=== PATIENT | female | born 1990 | race Two or more races ===

== ENCOUNTER → 2017-08-06 | Outpatient (REF) | payer OTHER | LOC: M SFHCLERA 13:15 | DX: R68.89 Other general symptoms and signs (principal); J35.1 Hypertrophy of tonsils ==

== ENCOUNTER → 2017-09-17 | Outpatient (REF) | payer OTHER ==
[2017-09-17 20:56] LABS: CHLAMYDIA DNA AMPLIFICATION NEGATIVE (NEGATIVE); GC DNA AMPLIFICATION NEGATIVE (NEGATIVE)
== END ==
LOC: M SFHCLERA 14:16
DX: R30.0 Dysuria (principal)

== ENCOUNTER → 2018-01-14 | Outpatient (REF) | payer OTHER | LOC: M SFHCLERA 17:42 | DX: J02.9 Acute pharyngitis, unspecified (principal) ==

== ENCOUNTER → 2018-01-28 | Outpatient (REF) | payer OTHER | LOC: M SFHCLERA 11:37 | DX: J02.9 Acute pharyngitis, unspecified (principal) ==

== ENCOUNTER → 2018-02-09 | Outpatient (REF) | payer OTHER | LOC: M SFHCADAM 19:19 | DX: J03.90 Acute tonsillitis, unspecified (principal); J02.9 Acute pharyngitis, unspecified | CPT/HCPCS: 87110 ==

== ENCOUNTER → 2018-04-03 | Outpatient (REF) | payer OTHER | LOC: M SFHCLERA 16:55 | DX: F43.22 Adjustment disorder with anxiety (principal) ==

== ENCOUNTER → 2018-06-20 | Outpatient (REF) | payer OTHER ==
[2018-06-20 20:34] LABS: APPEARANCE, URINE CLEAR (CLEAR); BACTERIA, URINE AUTO NEGATIVE (NEGATIVE); BILIRUBIN, URINE AUTO NEGATIVE (NEGATIVE); BLOOD, URINE BLOOD 2+ (NEGATIVE); COLOR, URINE STRAW (YELLOW); GLUCOSE, URINE (UA) AUTO NEGATIVE (NEGATIVE); KETONE, URINE AUTO NEGATIVE (NEGATIVE); LEUKOCYTE ESTERASE, URINE AUTO NEGATIVE (NEGATIVE); MUCUS, URINE SMALL (NEGATIVE); NITRITE, URINE AUTO NEGATIVE (NEGATIVE); PROTEIN, URINE AUTO NEGATIVE (NEGATIVE); RBC, URINE AUTO 0 /HPF (0-3); SPECIFIC GRAVITY URINE AUTO 1.005 (1.002-1.035); SQUAMOUS EPITHELIAL CELL UR AU 1 /HPF (0-6); UROBILINOGEN, URINE AUTO 0.2 mg/dL (0.0-2.0); WBC, URINE AUTO 1 /HPF (0-3)
== END ==
LOC: M SFHCLERA 15:34
PROVIDERS: ATTEND Family Medicine
DX: N20.1 Calculus of ureter (principal)
CPT/HCPCS: 81001; 87086; G0463

== ENCOUNTER → 2018-07-04 | Outpatient (CLI) | payer OTHER ==
--- NOTE | 2018-07-05 03:10 | REP ---
Clinical: Right foot pain with recent trauma/injury . Technique: AP, lateral, bilateral oblique views of the right foot. Findings: Post traumatic arthritic degenerative changes are appreciated primarily involving the first toe and associated tarsometatarsal joint with orthopedic hardware in satisfactory position. Degenerative changes at the first metatarsophalangeal joint includes chronic moderate medial subluxation, subchondral sclerosis, marginal spurring and joint space narrowing. The second through fifth toes appear essentially intact and relatively normal for age. No acute fracture or dislocation identified. No subcutaneous emphysema or radiodense foreign body. 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 No acute fracture or dislocation identified. Electronically Signed by Neil Vale MD 07/05/2018 03:02 A
== END ==
LOC: M LRY 14:16
PROVIDERS: ATTEND Family Medicine
DX: M19.171 Post-traumatic osteoarthritis, right ankle and foot (principal); Z96.60 Presence of unspecified orthopedic joint implant
CPT/HCPCS: 73630; G0463

== ENCOUNTER → 2018-07-05 | Outpatient (REF) | payer OTHER ==
[2018-07-05 14:35] LABS: APPEARANCE, URINE CLEAR (CLEAR); BACTERIA, URINE AUTO NEGATIVE (NEGATIVE); BILIRUBIN, URINE AUTO NEGATIVE (NEGATIVE); BLOOD, URINE BLOOD NEGATIVE (NEGATIVE); COLOR, URINE YELLOW (YELLOW); GLUCOSE, URINE (UA) AUTO NEGATIVE (NEGATIVE); KETONE, URINE AUTO NEGATIVE (NEGATIVE); LEUKOCYTE ESTERASE, URINE AUTO NEGATIVE (NEGATIVE); MUCUS, URINE SMALL (NEGATIVE); NITRITE, URINE AUTO NEGATIVE (NEGATIVE); PROTEIN, URINE AUTO NEGATIVE (NEGATIVE); RBC, URINE AUTO 0 /HPF (0-3); SQUAMOUS EPITHELIAL CELL UR AU 0 /HPF (0-6); UROBILINOGEN, URINE AUTO 0.2 mg/dL (0.0-2.0); WBC, URINE AUTO 1 /HPF (0-3)
== END ==
LOC: M SMT 13:36
PROVIDERS: ATTEND Nurse Practitioner Family
DX: N20.0 Calculus of kidney (principal)

== ENCOUNTER → 2018-07-12 | Outpatient (CLI) | payer OTHER ==
[~2018-07-12] MED LIST: ISOVUE-370 76% 125ML VIAL (Q9967 PER ML) As Ordered ONE
--- NOTE | 2018-07-13 16:21 | REP ---
Clinical: Ureteral calculus. Technique: Axial precontrast, contrast enhanced, and delayed images of the abdomen and pelvis using 100 ml Isovue 370 intravenous contrast material with coronal and sagittal re-formations. Comparison: None. Findings: Precontrast images demonstrate a 5 mm calculus in the left jacky pelvis which based on contrast enhanced and delayed images is suspected to be within the distal left ureter approaching the ureterovesical junction. However, there is no significant hydroureteronephrosis and correlation with physical examination and urinalysis is recommended. Two 1-2 mm nonobstructing right intrarenal calculi are also identified. The bilateral kidneys, ureters, and bladder otherwise appear normal. Liver, spleen, pancreas, gallbladder, and bilateral adrenal glands are normal. The enteric system is without obstruction or acute inflammatory process. Scattered colonic diverticula noted without acute diverticulitis. Normal terminal ileum and appendix are identified in the right lower quadrant. There appears to be a cone shaped foreign body within the uterus which should be correlated clinically. No pelvic fluid or ascites. No free air. No adenopathy. Abdominal aorta and vasculature without aneurysm or dissection. Musculoskeletal structures are intact. Impression: 1. Suspected 5 mm of the distal left ureteral calculus should be correlated clinically. 1-2 mm nonobstructing right intrarenal calculi. 2. Further findings as described above. Electronically Signed by Neil Vale MD 07/13/2018 04:13 P
== END ==
LOC: M RAD 08:30
PROVIDERS: ATTEND Nurse Practitioner Family
DX: N20.1 Calculus of ureter (principal)
CPT/HCPCS: 74178; Q9967

== ENCOUNTER → 2018-07-25 | Outpatient (CLI) | payer OTHER ==
[~2018-07-25] MED LIST changes: +IBUP-1022 PO; -ISOVUE-370 76% 125ML VIAL (Q9967 PER ML) As Ordered ONE
[2018-07-25 13:44] LABS: URINE PREG TEST NEGATIVE (NEGATIVE)
[2018-07-25 14:00] LABS: APPEARANCE, URINE CLEAR (CLEAR); BACTERIA, URINE AUTO NEGATIVE (NEGATIVE); BILIRUBIN, URINE AUTO NEGATIVE (NEGATIVE); BLOOD, URINE BLOOD NEGATIVE (NEGATIVE); COLOR, URINE YELLOW (YELLOW); GLUCOSE, URINE (UA) AUTO NEGATIVE (NEGATIVE); KETONE, URINE AUTO NEGATIVE (NEGATIVE); LEUKOCYTE ESTERASE, URINE AUTO NEGATIVE (NEGATIVE); MUCUS, URINE SMALL (NEGATIVE); NITRITE, URINE AUTO NEGATIVE (NEGATIVE); PROTEIN, URINE AUTO NEGATIVE (NEGATIVE); RBC, URINE AUTO 1 /HPF (0-3); SPECIFIC GRAVITY URINE AUTO 1.018 (1.002-1.035); SQUAMOUS EPITHELIAL CELL UR AU 2 /HPF (0-6); WBC, URINE AUTO 1 /HPF (0-3)
[2018-07-25 14:03] LABS: INR 0.97
[2018-07-25 14:04] LABS: PARTIAL THROMBOPLASTIN TIME 30.1 SECONDS (25.4-37.6)
[2018-07-25 14:30] LABS: BLOOD UREA NITROGEN 9 MG/DL (7-18); CALCIUM LEVEL 9.3 MG/DL (8.5-10.1); CARBON DIOXIDE LEVEL 27 MEQ/L (21-32); CHLORIDE LEVEL 106 MEQ/L (98-107); GLOMERULAR FILTRATION RATE > 60.0 (>60); GLUCOSE, FASTING 77 MG/DL (70-100); POTASSIUM SERUM 4.7 MEQ/L (3.5-5.1); SODIUM LEVEL 139 MEQ/L (136-145)
[2018-07-25 15:54] LABS: HEMATOCRIT 38.5 % (36.0-47.0); MEAN CORPUSCULAR HEMOGLOBIN 28.4 pg (27.0-33.0); MEAN CORPUSCULAR HGB CONC 31.2 g/dl (32.0-36.5); MEAN CORPUSCULAR VOLUME 91.2 fl (80.0-96.0); PLATELET COUNT, AUTOMATED 276 10^3/uL (150-450); RED BLOOD COUNT 4.22 10^6/uL (4.00-5.40); WHITE BLOOD COUNT 5.4 10^3/uL (4.0-10.0)
== END ==
LOC: M SMT 11:27
PROVIDERS: ATTEND Nurse Practitioner Family
DX: Z01.818 Encounter for other preprocedural examination (principal); N20.0 Calculus of kidney

== ENCOUNTER 2018-08-02 07:30 | Day surgery (SDC) | payer OTHER ==
[~2018-08-02] VITALS: Ht 170.2 cm; Wt 71.7 kg
[~2018-08-02 07:30] MED LIST changes: +CIPROFLOXACIN 400 MG in APPROPRIATE DILUENT 1 EA IV ONE; -IBUP-1022 PO; +LR 1,000 ML IV ONE
[2018-08-02] MEDS ORDERED: IBUP-1022 PO (08:04)
[2018-08-02 08:26] LABS: URINE PREG TEST NEGATIVE (NEGATIVE)
[2018-08-02] MEDS ORDERED: LIDOCAINE 2% INJ 100 MG/5 ML SDV (FOR ANES.) As Ordered ONE (08:55)
[2018-08-02] MEDS ORDERED: METOCLOPRAMIDE INJ 10MG/2ML VIAL (J2765) As Ordered ONE (08:55)
[2018-08-02] MEDS ORDERED: PROPOFOL 200 MG/20 ML VIAL As Ordered ONE (08:55)
[2018-08-02] MEDS ORDERED: fentaNYL 100 MCG/2 ML INJECTION (J3010) As Ordered ONE (08:55)
[2018-08-02] MEDS ORDERED: ONDANSETRON 4MG/2ML VIAL (J2405) As Ordered ONE (08:55)
[2018-08-02] MEDS ORDERED: MIDAZOLAM INJ 2 MG/2 ML VIAL (J2250) As Ordered ONE (08:55)
[2018-08-02] MEDS ORDERED: CONRAY-60 60% 50ML VIAL (Q9961) As Ordered ONE (09:17)
[2018-08-02] MEDS ORDERED: SCOPOLAMINE 1MG TRANSDERMAL PATCH As Ordered ONE (09:26)
[2018-08-02] MEDS ORDERED: SCOPOLAMINE 1MG TRANSDERMAL PATCH TOP ONE (09:45)
--- NOTE | 2018-08-02 10:40 | REP ---
Retrograde pyelogram: Three views. History: Nephrolithiasis. 24 seconds of fluoroscopy time is reported. Findings: A sequence of three last image hold fluoroscopically obtained spot radiographs document ureteral cannulation, contrast injection and stent placement. No laterality markers are present. Electronically Signed by Luis Carlos Montanez MD 08/02/2018 06:33 P
[2018-08-02] MEDS ORDERED: LR 1,000 ML IV SCH (10:45)
[2018-08-02] MEDS ORDERED: ONDANSETRON 4MG/2ML VIAL (J2405) IV PRN (10:45)
[2018-08-02] MEDS ORDERED: PERCOCET 5MG/325MG TAB PO PRN ×2 (10:45)
[2018-08-02] MEDS ORDERED: HYDROMORPHONE HCL 0.5 MG/ 0.5 ML SYRINGE (J1170 PER 1) IV PRN (10:45)
[2018-08-02] MEDS ORDERED: fentaNYL 100 MCG/2 ML INJECTION (J3010) IV PRN (10:45)
--- NOTE | 2018-08-02 10:46 | RO ---
DATE OF PROCEDURE: 08/02/2018 PREPROCEDURE DIAGNOSIS: Left ureteral stone. POSTPROCEDURE DIAGNOSIS: Left ureteral stone. PROCEDURE: Cystoscopy, left ureteroscopy with basket extraction of stone, left retrograde pyelogram with intraoperative interpretation of images, left ureteral stent placement. SURGEON: Pepe Faith MD [employer] INSPECTOR: None. ANESTHESIA: General. OPERATIVE INDICATIONS: This is a 28-year-old female who was recently found to have an approximately 6 4 mm obstructing distal left ureteral stone. She was brought to the operating room today for above listed procedure. DESCRIPTION OF PROCEDURE: The patient brought to the operating room and general anesthesia induced. Prophylactic antibiotics were infused. She was then placed in dorsal lithotomy position, prepped and draped in the usual sterile fashion. A rigid cystoscope was then inserted into the urethral meatus and advanced to the bladder. A guidewire was advanced up the left collecting system. I then went up the left ureter with a short semi-rigid ureteroscope and within the distal ureter a 6 mm stone was seen. The stone was then grasped with a basket and withdrawn completely. I then went back in the ureter with the ureteroscope and of note in the area where the stone was sitting there was a moderate amount of edema. Above that level the ureter was hydronephrotic. No other stones were seen within the ureter. A left retrograde pyelogram was performed and noted for mild to moderate left hydronephrosis with no extravasation. I then withdrew the ureteroscope and then utilized the wire to advance a 6 [place] x 22-32 cm JJ ureteral stent up into the left collecting system. The wire was then removed and there were adequate curls of the stent in the left renal pelvis and in the bladder. Of note, the string was left on the end of the stent. The string was then secured to her suprapubic area so that she can remove the stent on her own in approximately 1 week. The patient was then taken out of dorsal lithotomy position, awakened from anesthesia and transported to recovery room in stable condition. ESTIMATED BLOOD LOSS: 5 mL. INTRAOPERATIVE COMPLICATIONS: None. SPECIMENS: Left ureteral stone. PLAN: The patient will remove her stent in 1 week. I will have her followup in the clinic in a few weeks for a postoperative visit. YURY
[2018-08-02 12:07] VITALS: BP 114/58
== END 2018-08-02 12:12 | disposition home or self-care (01) ==
LOC: M SDC 07:30
PROVIDERS: ATTEND Urology
DX: N20.1 Calculus of ureter (principal); N20.0 Calculus of kidney; Z88.0 Allergy status to penicillin; Z88.8 Allergy status to other drugs, medicaments and biological substances; Z91.018 Allergy to other foods
CPT/HCPCS: 52332; 52352; 74420; 82360; 84703; 88300; C1769; C2617; J0744; J2250; J2405; J2765; J3010; Q9961

== ENCOUNTER → 2018-08-11 | Outpatient (REF) | payer OTHER ==
[~2018-08-11] MED LIST changes: -CIPROFLOXACIN 400 MG in APPROPRIATE DILUENT 1 EA IV ONE; +IBUP-1022 PO; -LR 1,000 ML IV ONE
== END ==
LOC: M SFHCLERA 09:50
PROVIDERS: ATTEND Physician Assistant
DX: R30.0 Dysuria (principal)
CPT/HCPCS: 81002; 87088; 87186; G0463

== ENCOUNTER → 2018-08-27 | Outpatient (REF) | payer OTHER ==
[2018-08-27 14:02] LABS: APPEARANCE, URINE CLEAR (CLEAR); BACTERIA, URINE AUTO NEGATIVE (NEGATIVE); BILIRUBIN, URINE AUTO NEGATIVE (NEGATIVE); BLOOD, URINE BLOOD NEGATIVE (NEGATIVE); COLOR, URINE YELLOW (YELLOW); GLUCOSE, URINE (UA) AUTO NEGATIVE (NEGATIVE); KETONE, URINE AUTO NEGATIVE (NEGATIVE); LEUKOCYTE ESTERASE, URINE AUTO NEGATIVE (NEGATIVE); MUCUS, URINE SMALL (NEGATIVE); NITRITE, URINE AUTO NEGATIVE (NEGATIVE); PROTEIN, URINE AUTO NEGATIVE (NEGATIVE); RBC, URINE AUTO 0 /HPF (0-3); SPECIFIC GRAVITY URINE AUTO 1.017 (1.002-1.035); SQUAMOUS EPITHELIAL CELL UR AU 0 /HPF (0-6); UROBILINOGEN, URINE AUTO 0.2 mg/dL (0.0-2.0); WBC, URINE AUTO 1 /HPF (0-3)
== END ==
LOC: M SMT 13:29
PROVIDERS: ATTEND Nurse Practitioner Family
DX: N39.0 Urinary tract infection, site not specified (principal)

== ENCOUNTER → 2018-08-31 | Outpatient (REF) | payer OTHER ==
[2018-08-31 17:11] LABS: APPEARANCE, URINE HAZY (CLEAR); BACTERIA, URINE AUTO NEGATIVE (NEGATIVE); BILIRUBIN, URINE AUTO NEGATIVE (NEGATIVE); BLOOD, URINE BLOOD NEGATIVE (NEGATIVE); COLOR, URINE YELLOW (YELLOW); GLUCOSE, URINE (UA) AUTO NEGATIVE (NEGATIVE); KETONE, URINE AUTO NEGATIVE (NEGATIVE); LEUKOCYTE ESTERASE, URINE AUTO NEGATIVE (NEGATIVE); MUCUS, URINE SMALL (NEGATIVE); NITRITE, URINE AUTO NEGATIVE (NEGATIVE); PROTEIN, URINE AUTO NEGATIVE (NEGATIVE); RBC, URINE AUTO 1 /HPF (0-3); SPECIFIC GRAVITY URINE AUTO 1.015 (1.002-1.035); SQUAMOUS EPITHELIAL CELL UR AU 4 /HPF (0-6); UROBILINOGEN, URINE AUTO 0.2 mg/dL (0.0-2.0); WBC, URINE AUTO 1 /HPF (0-3)
== END ==
LOC: M SFHCLERA 12:08
PROVIDERS: ATTEND Family Medicine
DX: R30.0 Dysuria (principal)
CPT/HCPCS: 81001; 81002; 87086; G0463

== ENCOUNTER → 2018-09-04 | Outpatient (CLI) | payer OTHER ==
--- NOTE | 2018-09-11 15:21 | REP ---
RENAL AND BLADDER ULTRASOUND: Real-time sonographic evaluation of the kidneys is performed and demonstrates both kidneys to be normal size and echo texture, right kidney measuring 10.8 x 5.2 x 3.6 cm and left kidney 11.6 x 5.7 x 4.9 cm. There is no hydronephrosis bilaterally. A few tiny echogenic foci are seen scattered throughout the right renal collecting system which may represent tiny infrarenal calculi. Urinary bladder is mildly distended with no mass or calculus. IMPRESSION: No hydronephrosis. Possibly a few tiny intrarenal stones right renal collecting system. Electronically Signed by Maldonado Gresham MD 09/12/2018 09:26 A
== END ==
LOC: M RAD 13:29
PROVIDERS: ATTEND Nurse Practitioner Family
DX: R10.9 Unspecified abdominal pain (principal)

== ENCOUNTER → 2018-09-24 | Outpatient (REF) | payer OTHER | LOC: M SFHCLERA 16:09 | PROVIDERS: ATTEND Nurse Practitioner Family | DX: R30.0 Dysuria (principal) | CPT/HCPCS: 81002; 87088; 87186; G0463 ==

== ENCOUNTER → 2018-10-02 | Outpatient (REF) | payer OTHER | LOC: M SFHCLERA 09:15 | PROVIDERS: ATTEND Family Medicine | DX: N30.00 Acute cystitis without hematuria (principal) ==

== ENCOUNTER → 2018-10-10 | Outpatient (REF) | payer OTHER | LOC: M SFHCLERA 16:23 | PROVIDERS: ATTEND Family Medicine | DX: R30.0 Dysuria (principal) | CPT/HCPCS: 81002; 87088; 87186; G0463 ==

== ENCOUNTER → 2018-10-16 | Outpatient (CLI) | payer OTHER ==
--- NOTE | 2018-10-16 14:13 | REP ---
Clinical: Flank pain and history of recurrent urinary tract infection. Technique: Real time lopez scale and color evaluation using curved array transducer. Findings: Bladder is normal in appearance. Prevoid bladder measures 10.2 x 6.0 x 8.2 cm and bilateral ureteral jets are identified. The kidneys are normal in contour, size, and reniform shape but demonstrate diffusely increased parenchymal echogenicity and small punctate nonobstructing calculi suggesting medullary nephrocalcinosis. Clinical correlation is recommended. No hydronephrosis, cystic or renal mass lesion appreciated. Right kidney measures 10.2 x 5.7 x 3.9 cm. Left kidney measures 11.6 x 4.5 x 5.3 cm. Impression: Increased renal parenchymal echogenicity and small punctate suspected nonobstructing nephroliths raising the possibility of medullary nephrocalcinosis. Electronically Signed by Neil Vale MD 10/16/2018 02:05 P
== END ==
LOC: M RAD 12:40
PROVIDERS: ATTEND Family Medicine
DX: N39.0 Urinary tract infection, site not specified (principal)

== ENCOUNTER → 2018-10-18 | Outpatient (REF) | payer OTHER ==
[2018-10-18 17:30] LABS: APPEARANCE, URINE CLEAR (CLEAR); BACTERIA, URINE AUTO NEGATIVE (NEGATIVE); BILIRUBIN, URINE AUTO NEGATIVE (NEGATIVE); BLOOD, URINE BLOOD NEGATIVE (NEGATIVE); COLOR, URINE YELLOW (YELLOW); GLUCOSE, URINE (UA) AUTO NEGATIVE (NEGATIVE); KETONE, URINE AUTO NEGATIVE (NEGATIVE); LEUKOCYTE ESTERASE, URINE AUTO NEGATIVE (NEGATIVE); NITRITE, URINE AUTO NEGATIVE (NEGATIVE); PROTEIN, URINE AUTO NEGATIVE (NEGATIVE); RBC, URINE AUTO 0 /HPF (0-3); SQUAMOUS EPITHELIAL CELL UR AU 1 /HPF (0-6); UROBILINOGEN, URINE AUTO 0.2 mg/dL (0.0-2.0); WBC, URINE AUTO 0 /HPF (0-3)
== END ==
LOC: M SMT 16:58
PROVIDERS: ATTEND Urology
DX: N39.0 Urinary tract infection, site not specified (principal)
CPT/HCPCS: 51798; 81001; G0463

== ENCOUNTER → 2018-10-24 | Outpatient (REF) | payer OTHER ==
[2018-10-24 21:00] LABS: APPEARANCE, URINE HAZY (CLEAR); BACTERIA, URINE AUTO NEGATIVE (NEGATIVE); BILIRUBIN, URINE AUTO NEGATIVE (NEGATIVE); BLOOD, URINE BLOOD NEGATIVE (NEGATIVE); COLOR, URINE YELLOW (YELLOW); GLUCOSE, URINE (UA) AUTO NEGATIVE (NEGATIVE); KETONE, URINE AUTO NEGATIVE (NEGATIVE); LEUKOCYTE ESTERASE, URINE AUTO NEGATIVE (NEGATIVE); MUCUS, URINE SMALL (NEGATIVE); NITRITE, URINE AUTO NEGATIVE (NEGATIVE); PROTEIN, URINE AUTO NEGATIVE (NEGATIVE); RBC, URINE AUTO 0 /HPF (0-3); SPECIFIC GRAVITY URINE AUTO 1.021 (1.002-1.035); SQUAMOUS EPITHELIAL CELL UR AU 8 /HPF (0-6); UROBILINOGEN, URINE AUTO 0.2 mg/dL (0.0-2.0); WBC, URINE AUTO 2 /HPF (0-3)
== END ==
LOC: M LABSMT 16:01
PROVIDERS: ATTEND Urology
DX: N39.0 Urinary tract infection, site not specified (principal)

== ENCOUNTER → 2018-11-02 | Outpatient (CLI) | payer OTHER ==
--- NOTE | 2018-11-03 07:29 | REP ---
CT abdomen and pelvis without IV or oral contrast: Renal stone protocol. History: Flank pain. History of kidney stone. Comparison sonography October 16, 2018. Comparison CT study July 12, 2018. CT findings: Preliminary digital bank appraiser radiograph demonstrates an unremarkable bowel gas pattern. The lung bases are clear on axial CT images. There is no evidence of pleural effusion or upper abdominal ascites. The liver and the spleen are normal in size, homogeneous in texture. No abnormality is noted in the gallbladder or pancreas. No adrenal lesion is seen on either side. No retroperitoneal mass or adenopathy is observed. Normal caliber appendix is seen in the right lower quadrant. Small and large bowel loops are unremarkable. No abdominal wall defect is seen. The uterus is retroverted and retroflexed. No adnexal abnormality is seen. No bony destructive lesion is appreciated. There are two or three tiny punctate calcifications in the lower and mid pole of the right kidney. No hydronephrosis is seen on the right. The left kidney shows no discernible intrarenal calculus. There is no left-sided hydronephrosis. No ureteral stone is seen. No bladder calculus is observed. Impression: Two or three tiny 1 mm intrarenal calculi right kidney. No hydronephrosis. No other urinary tract calculus seen. Electronically Signed by Luis Carlos Montanez MD 11/03/2018 11:58 A
== END ==
LOC: M RAD 15:39
PROVIDERS: ATTEND Urology
DX: N20.0 Calculus of kidney (principal)

== ENCOUNTER → 2018-11-13 | Outpatient (REF) | payer OTHER ==
[2018-11-13 18:52] LABS: CHLAMYDIA DNA AMPLIFICATION NEGATIVE (NEGATIVE); GC DNA AMPLIFICATION NEGATIVE (NEGATIVE)
== END ==
LOC: M SFHCLERA 11:30
PROVIDERS: ATTEND Family Medicine
DX: R30.0 Dysuria (principal)
CPT/HCPCS: 81002; 87086; 87491; 87591; G0463

== ENCOUNTER → 2018-12-18 | Outpatient (REF) | payer OTHER ==
[2018-12-19 14:02] LABS: CHLAMYDIA DNA AMPLIFICATION NEGATIVE (NEGATIVE); GC DNA AMPLIFICATION NEGATIVE (NEGATIVE)
== END ==
LOC: M SFHCLERA 19:11
PROVIDERS: ATTEND Nurse Practitioner Family
DX: R30.0 Dysuria (principal)

== ENCOUNTER → 2019-01-05 | Outpatient (REF) | payer OTHER | LOC: M SFHCLERA 15:02 | PROVIDERS: ATTEND Physician Assistant | DX: J03.90 Acute tonsillitis, unspecified (principal) ==

== ENCOUNTER → 2019-01-24 | Outpatient (REF) | payer OTHER ==
[2019-01-25 13:59] LABS: CHLAMYDIA DNA AMPLIFICATION NEGATIVE (NEGATIVE); GC DNA AMPLIFICATION NEGATIVE (NEGATIVE)
== END ==
LOC: M SFHCLERA 19:26
PROVIDERS: ATTEND Nurse Practitioner Family
DX: R30.0 Dysuria (principal); R68.89 Other general symptoms and signs
CPT/HCPCS: 71046; 81002; 81025; 87086; 87661; 87804; G0463

== ENCOUNTER → 2019-01-24 | Outpatient (CLI) | payer OTHER ==
--- NOTE | 2019-01-24 19:31 | REP ---
PA and lateral chest: There are no comparisons. The lung su are clear. The cardiac size is normal. The lucas, mediastinum, and skeletal structures are unremarkable. Impression: Negative PA and lateral chest. Electronically Signed by Maldonado Pinzon MD 01/24/2019 07:23 P
== END ==
LOC: M LRY 18:44
PROVIDERS: ATTEND Nurse Practitioner Family
DX: R68.89 Other general symptoms and signs (principal)

== ENCOUNTER → 2019-05-02 | Outpatient (CLI) | payer OTHER ==
--- NOTE | 2019-05-02 13:59 | REP ---
PELVIC SONOGRAPHY: HISTORY: Right lower quadrant abdominal pain. FINDINGS: Transabdominal and transvaginal scanning are performed. Uterine dimensions are 6.7 x 3.6 x 5.7 cm. Endometrial echo 0.6 cm thick. Uterus is somewhat retroverted. No uterine mass lesion is seen. Visualized bladder burnette are smooth. There is a small sliver of fluid in the cul-de-sac consistent with physiologic fluid. Normal ovaries are seen bilaterally. Right ovarian dimensions into 6 x 2.0 x 1.7 cm left ovary measures 1.9 x 3.3 x 2.5 cm. IMPRESSION: Somewhat retroverted uterus. Otherwise normal pelvic sonography. Electronically Signed by Luis Carlos Montanez MD 05/02/2019 06:29 P
== END ==
LOC: M LRY 12:28
PROVIDERS: ATTEND Family Medicine
DX: N85.4 Malposition of uterus (principal); R10.31 Right lower quadrant pain
CPT/HCPCS: 76830; 76856; 93976; G0463

== ENCOUNTER → 2019-05-02 | Outpatient (REF) | payer OTHER | LOC: M SFHCLERA 13:19 | PROVIDERS: ATTEND Family Medicine | DX: Z53.9 Procedure and treatment not carried out, unspecified reason (principal) ==

== ENCOUNTER → 2019-05-03 | Outpatient (REF) | payer OTHER ==
[2019-05-03 11:46] LABS: BASO % 0.4 % (0.0-1.0); EOS # 0.1 10^3/uL (0.0-0.5); EOS % 2.5 % (0.0-3.0); HEMATOCRIT 37.9 % (36.0-47.0); HEMOGLOBIN 11.7 g/dl (12.0-15.5); LYMPH # 2.1 10^3/uL (1.5-5.0); MEAN CORPUSCULAR HEMOGLOBIN 28.6 pg (27.0-33.0); MEAN CORPUSCULAR HGB CONC 30.9 g/dl (32.0-36.5); MEAN CORPUSCULAR VOLUME 92.7 fl (80.0-96.0); MONO # 0.3 10^3/uL (0.0-0.8); MONO % 6.8 % (0.0-5.0); NEUTROPHILS # 2.4 10^3/uL (1.5-8.5); NEUTROPHILS % 48.1 % (36.0-66.0); PLATELET COUNT, AUTOMATED 240 10^3/uL (150-450); RED BLOOD COUNT 4.09 10^6/uL (4.00-5.40); WHITE BLOOD COUNT 4.9 10^3/uL (4.0-10.0)
[2019-05-03 12:21] LABS: ALBUMIN 4.2 GM/DL (3.2-5.2); ALT/SGPT 23 U/L (12-78); BILIRUBIN,TOTAL 0.6 MG/DL (0.2-1.0); BLOOD UREA NITROGEN 16 MG/DL (7-18); CALCIUM LEVEL 9.1 MG/DL (8.5-10.1); CARBON DIOXIDE LEVEL 28 MEQ/L (21-32); CHLORIDE LEVEL 108 MEQ/L (98-107); CREATININE FOR GFR 0.61 MG/DL (0.55-1.30); GLOMERULAR FILTRATION RATE > 60.0 (>60); GLUCOSE, FASTING 83 MG/DL (70-100); HCG, SERUM QUANTITATIVE < 1.0 MIU/ML; POTASSIUM SERUM 5.1 MEQ/L (3.5-5.1); SODIUM LEVEL 140 MEQ/L (136-145); TOTAL PROTEIN 7.4 GM/DL (6.4-8.2)
== END ==
LOC: M SFHCLERA 09:46
PROVIDERS: ATTEND Family Medicine
DX: R10.31 Right lower quadrant pain (principal)

== ENCOUNTER → 2019-05-24 | Outpatient (CLI) | payer OTHER ==
[2019-05-24 12:36] LABS: PROGESTERONE 7.17 NG/ML
[2019-05-24 12:46] LABS: HCG, SERUM QUALITATIVE NEGATIVE (NEGATIVE)
== END ==
LOC: M LRY 09:52
PROVIDERS: ATTEND Obstetrics & Gynecology Obstetrics
DX: N97.9 Female infertility, unspecified (principal)

== ENCOUNTER → 2019-12-21 | Outpatient (CLI) | payer OTHER ==
--- NOTE | 2020-01-21 11:01 | REP ---
LEFT SHOULDER SERIES CLINICAL: Nontraumatic left shoulder pain. TECHNIQUE: Internal rotation, external rotation, and wide view of the left shoulder. FINDINGS: Acromioclavicular and glenohumeral joints are intact and normal. Surrounding soft tissues are unremarkable. Joint spaces are normal. IMPRESSION: Normal age appropriate left shoulder radiographs. MTDD
== END ==
LOC: M WUC 15:04
PROVIDERS: ATTEND Physician Assistant
DX: M25.512 Pain in left shoulder (principal)